=== PATIENT | female | born 1945 | race Caucasian/White ===

== ENCOUNTER 2018-01-20 09:52 | Outpatient (CLI) | payer MEDICARE ==
--- NOTE | 2018-01-20 13:10 | CT ---
CT PULMONARY LUNG SCAN NONCONTRAST: Comparison: 01-16-17 Clinical history: Wellness exam, screening for lung cancer. FINDINGS: Stable reticular nodular density at the medial right apex which likely relates to sequellae from radi ation therapy. An overlying indwelling right breast implant remains in place. No new suspicious pulmo nary nodule is present. No consolidation or effusion. There is atherosclerotic vascular disease. A li near density in the lingula may relate to subsegmental atelectasis or scar. IMPRESSION: Lung rads category 1 - negative. Continued annual screening with low dose CT is recommended in 12 fri ths. POS: [facility]
== END 2018-01-20 09:53 | disposition home or self-care (01) ==
LOC: CT 09:52
PROVIDERS: ATTEND Family Medicine
DX: F17.210 Nicotine dependence, cigarettes, uncomplicated (principal)
CPT/HCPCS: G0297

== ENCOUNTER 2019-04-28 10:29 | Outpatient (CLI) | payer MEDICARE ==
--- NOTE | 2019-04-28 12:55 | CT ---
CT OF THE THORAX WITHOUT IV CONTRAST UTILIZING A PULMONARY LUNG CANCER SCREENING PROTOCOL: 04/28/19 INDICATION: Long history of low dose lung cancer screening without complaints. Patient is a current smoker of 50+ years and smokes approximately pack per day with a history of breast cancer and nicotine dependent . COMPARISON: Prior CT pulmonary lung scan dated 01/20/18. FINDINGS: The right sided mastectomy and breast implant is unchanged. No suspicious pulmonary nodule is seen within the right upper lobe. No suspicious pulmonary nodule is seen within the right middle lobe. No suspicious pulmonary nodule is evident within the right lower lobe. No suspicious pulmonary nodule is evident within the left upper lobe. No suspicious pulmonary nodule seen within the region of the lingula. No suspicious pulmonary nodule is seen within the left lower lobe. There are vascular calcifications involving the thoracic aorta and coronary arteries. No pathological ly enlarged lymph nodes seen within the mediastinal or hilar regions. Lack of IV contrast limits eval uation for hilar lymphadenopathy. The visualized upper abdomen demonstrates normal appearing adrenal glands. There is scattered degenerative and osteoarthritic change. IMPRESSION: Lung RADS category 1 - negative. Continue annual screening with low dose CTs recommended in twelve mo nths. POS: [facility]
== END 2019-04-28 10:30 | disposition home or self-care (01) ==
LOC: CT 10:29
PROVIDERS: ATTEND Family Medicine
DX: F17.210 Nicotine dependence, cigarettes, uncomplicated (principal)
CPT/HCPCS: G0297